=== PATIENT | male | born 1990 | race African-American/Black ===

== ENCOUNTER 2018-07-20 20:47 | Emergency (ER) | payer SELFPAY ==
[~2018-07-20] VITALS: Ht 188 cm; Wt 86.2 kg
[2018-07-20 21:02] VITALS: BP 143/86
--- NOTE | 2018-07-20 21:20 | PHYS DOC ---
Past Medical History Past Medical History: No Pertinent History Past Surgical History: No Surgical History Alcohol Use: None Drug Use: None Adult General Chief Complaint Chief Complaint: LACERATION/AVULSION HPI HPI 28-year-old male presents to ER with complaints of accidental laceration to left palm. 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 He denies that the knife he cut his hand with was dirty as he hadn't had anything yet with the knife. He is uncertain of his last tetanus shot. He denies numbness or tingling in left hand. He reports he is right hand dominant. He denies any other injuries or [id number] medications prior to arrival to ER. Review of Systems Review of Systems GI: Denies nausea, vomiting Musculoskeletal: Reports rt hand laceration and pain at site- denies skin discoloration or lg amt of blood loss Integument: Reports laceration Neurologic: Denies focal weakness or sensory changes. Denies dizziness All other systems were reviewed and found to be within normal limits, except as documented in this note. Current Medications Current Medications Current Medications Medications (Trade) Dose Ordered Sig/Anderson Start Time Stop Time Status Last Admin Dose Admin Diphtheria/ Tetanus/Acell Pertussis (Boostrix) 0.5 ml ONCE ONCE 07/20/18 22:00 07/20/18 22:01 DC 07/20/18 21:46 0.5 ML Ibuprofen (Motrin) 600 mg 1X ONCE 07/20/18 22:00 07/20/18 22:01 DC 07/20/18 21:46 600 MG Lidocaine HCl (Lidocaine 1% 20ml Vial) 20 ml 1X ONCE 07/20/18 22:00 07/20/18 22:01 DC 07/20/18 21:45 20 ML Neomycin/ Polymyxin/ Bacitracin (Triple Antibiotic Ointment) 1 pkt 1X ONCE 07/20/18 23:45 07/20/18 23:46 DC 07/20/18 23:45 1 PKT Allergies Allergies Allergies Coded Allergies Type Severity Reaction Last Updated Verified No Known Allergies Allergy Unknown 07/20/18 Yes Physical Exam Physical Exam Constitutional: Well developed, well nourished, no acute distress, non-toxic appearance. [] HENT: Normocephalic, atraumatic, oropharynx moist, no oral exudates, nose normal. [] Eyes: Pupils equal, conjunctiva normal, no discharge. [] Neck: Normal range of motion, supple Cardiovascular:Heart rate tachycardic with pt anxious during initial exam d/t injury- no active bleeding at time of exam and reassurance provided to pt which improved HR to 80-90s Lungs & Thorax: Resp. equal/nonlabored. Skin: Warm, dry, no erythema, no rash. [] Back: No tenderness, no CVA tenderness. [] Extremities: No cyanosis, no clubbing, ROM intact, no edema. Laceration lt palm at base of 4-5th fingers extends to lateral side of lt hand. Flexor tendons intact against resistance. 2+ radial bilat. Brisk cap refill lt hand Neurologic: Alert and oriented X 3, normal motor function, normal sensory function, no focal deficits noted. [] Psychologic: Affect normal, judgement normal, anxious during initial exam with injury- no uncontrollable behavior Current Patient Data Vital Signs Vital Signs Date Time Temp Pulse Resp B/P (MAP) Pulse Ox O2 Delivery O2 Flow Rate FiO2 07/20/18 21:02 98.9 102 16 143/86 (105) 99 Room Air 98.9 EKG EKG [] Radiology/Procedures Radiology/Procedures Laceration Repair by ky: [id number] Anesthesia: 1% lidocaine locally 3mL Location: Lt palm at base of 4-5th fingers extending into lt lateral side of hand Tendon/Joint/Nerves: No injury Foreign body: None detected after copious irrigation and exploration Technique: Simple Interrupted Sutures #8 5.0 nylon Complexity: No subcutaneous sutures/mucosal repair/edge excision Post Closure Length: 7 cm Patient's bleeding was easily controlled in the department and there is no indication of anemia. No evidence of compartment syndrome, neurologic injury, vascular injury, open joint, tendon laceration, or foreign body. Patient is appropriate for outpatient follow up. 48 hour wound check. Scar minimization instructions given. Course & Med Decision Making Course & Med Decision Making Pt was evaluated in the ER for accidental laceration to lt hand with reported clean kitchen knife. Pt was updated on tetanus and provided with dose of Ibuprofen. Pt had laceration repair following wound cleanse. He had full ROM of lt hand/fingers with flexor tendons intact against resistance. Full flexor/ extension of all fingers intact. Cap refill brisk prior to and following lac repair. During lac repair no visible tendon injury located. Lac was well approximated and wound closed with nylon sutures. Wound care was discussed with pt along with f/u need with his PCP for suture removal in 7-10 days. Pt had minimal blood loss during procedure and tolerated lac repair well. He remained PMS intact in lt upper extremity. Education provided on s&s to return to ER for and d/c instructions were discussed. Dragon Disclaimer Dragon Disclaimer This electronic medical record was generated, in whole or in part, using a voice recognition dictation system. Departure Departure Impression: Primary Impression: Laceration of hand, left Disposition: 01 HOME, SELF-CARE Condition: STABLE Patient Instructions: Laceration Care, Adult, Sutured Wound Care Additional Instructions: Tylenol and/or ibuprofen as needed for pain as directed on container. Monitor wound for signs of infection and follow-up with your primary care physician for wound reevaluation as needed. Sutures need removed in 7 days follow-up with your primary care physician's office for suture removal. You were updated on your tetanus while in the Emergency Department. PARTH ROSADO RIGGER THIRD Jul 20, 2018 21:20
[2018-07-20] MEDS ORDERED: DIPHTH,PERTUSS(ACELL),TET TOX 0.5 ML DISP.SYRIN. VAX IM ONE (22:00)
[2018-07-20] MEDS ORDERED: IBUPROFEN 200 MG TABLET. PO ONE (22:00)
[2018-07-20] MEDS ORDERED: LIDOCAINE 1% Multi-Dose 20 ML VIAL. INJ ONE (22:00)
[2018-07-20] MEDS ORDERED: NEOMY/BACITR/POLYMYXIN OINT PACKET. TP ONE (23:45)
== END 2018-07-20 23:49 | disposition home or self-care (01) ==
LOC: ER 20:47
DX: S61.412A Laceration without foreign body of left hand, initial encounter (principal); R00.0 Tachycardia, unspecified; W26.0XXA Contact with knife, initial encounter; Y93.89 Activity, other specified; Y92.090 Kitchen in other non-institutional residence as the place of occurrence of the external cause; Y99.0 Civilian activity done for income or pay
CPT/HCPCS: 12002; 90471; 90715; 99283

== ENCOUNTER 2018-07-30 16:09 | Emergency (ER) | payer SELFPAY ==
[~2018-07-30] VITALS: Ht 188 cm; Wt 81.6 kg
[2018-07-30 16:27] VITALS: BP 115/68
--- NOTE | 2018-07-30 17:00 | PHYS DOC ---
Past Medical History Past Medical History: No Pertinent History Past Surgical History: No Surgical History Alcohol Use: None Drug Use: None Adult General Chief Complaint Chief Complaint: SUTURE/STAPLE REMOVAL HPI HPI Patient is a 28 year old AA male who is here today for suture removal from his L hand. He had sutures place on the palm aspect of the L hand on 07/20/18 after being cut with a knife. He reports he has been healing well. Review of Systems Review of Systems Constitutional: Denies fever or chills Respiratory: Denies cough or shortness of breath Cardiovascular: Denies chest pain GI: Denies abdominal pain, nausea, vomiting, bloody stools or diarrhea : Denies dysuria or hematuria Musculoskeletal: Denies back pain or joint pain Integument: Denies rash or skin lesion. Healing laceration. Neurologic: Denies headache, focal weakness or sensory changes All other systems were reviewed and found to be within normal limits, except as documented in this note. Allergies Allergies Allergies Coded Allergies Type Severity Reaction Last Updated Verified No Known Allergies Allergy Unknown 07/20/18 Yes Physical Exam Physical Exam Constitutional: Well developed, well nourished, no acute distress, non-toxic appearance. Neck: Normal range of motion, no tenderness, supple, no stridor. Cardiovascular:Heart rate regular rhythm, no murmur Lungs & Thorax: Bilateral breath sounds clear to auscultation Abdomen: Bowel sounds normal, soft, no tenderness, no masses, no pulsatile masses. Skin: Warm, dry, no erythema, no rash. Well healing laceration of L palm. Back: No tenderness, no CVA tenderness. Extremities: No tenderness, no cyanosis, no clubbing, ROM intact, no edema. Full ROM of all fingers and hand. Neurologic: Alert and oriented X 3, normal motor function, normal sensory function, no focal deficits noted. Psychologic: Affect normal, judgement normal, mood normal. Current Patient Data Vital Signs Vital Signs Date Time Temp Pulse Resp B/P (MAP) Pulse Ox O2 Delivery O2 Flow Rate FiO2 07/30/18 16:27 97.9 16 16 115/68 (84) 94 97.9 EKG EKG [] Radiology/Procedures Radiology/Procedures [] Course & Med Decision Making Course & Med Decision Making Pertinent Labs and Imaging studies reviewed. (See chart for details) Pt tolerated suture removal well. Encouraged to keep wound clean and apply daily antibiotic ointment. Pt to f/u with orthopedics if any concerns. Dragon Disclaimer Dragon Disclaimer This electronic medical record was generated, in whole or in part, using a voice recognition dictation system. Suture/Staple Removal Indication: [INDICATION:] suture removal Procedure: The patient was placed in the appropriate position and the sutures were removed without difficulty. The patient tolerated the procedure well and hand was then rebandaged for comfort. Complications: none Departure Departure Impression: Primary Impression: Visit for suture removal Disposition: 01 HOME, SELF-CARE Condition: IMPROVED Referrals: NO PCP (PCP) Patient Instructions: Suture Removal Additional Instructions: Wash wound gently and continue to apply antibiotic ointment on it daily. KRISS WATKINS Jul 30, 2018 17:00
== END 2018-07-30 17:10 | disposition home or self-care (01) ==
LOC: ER 16:09
DX: S61.412D Laceration without foreign body of left hand, subsequent encounter (principal); W26.0XXD Contact with knife, subsequent encounter
CPT/HCPCS: 99282; 99283